=== PATIENT | female | born 1995 | race Caucasian/White ===

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

== ENCOUNTER 2017-12-02 18:08 | Emergency (ER) | payer OTHER ==
[2017-12-02 18:43] VITALS: BP 107/67
[2017-12-02] MEDS ORDERED: Ondansetron ODT TAB* 4 MG PO ONE ×2 (18:50→19:37)
--- NOTE | 2017-12-02 18:51 | UC ---
General HPI - HPI Summary HPI Summary: Pt presents with vomiting and diarrhea that began this morning around 0800. Last night felt fine. Ate pizza for dinner and had a mint shake from [employer] later that evening. Currently with mild generalized abdominal cramping. Just had her period, so she is confident that she is not . Has been trying to drink fluids, but has to vomit within a half hour after trying to consume anything. Denies fever, chills, recent illness, SOB, chest pain. - History of Current Complaint Chief Complaint: UCGI Stated Complaint: VOMITING/DIARRHEA Time Seen by Provider: 12/02/17 18:49 Hx Obtained From: Patient Onset/Duration: Sudden Onset Onset Severity: Moderate Current Severity: Moderate Pain Intensity: 6 - Allergy/Home Medications Allergies/Adverse Reactions: Allergies Allergy/AdvReac Type Severity Reaction Status Date / Time amoxicillin Allergy Unknown Verified 12/02/17 18:37 Reaction Details PMH/Surg Hx/FS Hx/Imm Hx Previously Healthy: Yes - Surgical History Surgical History: None - Family History Known Family History: Positive: Hypertension Negative: Cardiac Disease, Diabetes - Social History Occupation: Student Lives: Dormitory/Roommates Alcohol Use: Rare Substance Use Type: None Smoking Status (MU): Never Smoked Tobacco Review of Systems Constitutional: Negative Skin: Negative Respiratory: Negative Cardiovascular: Negative Gastrointestinal: Abdominal Pain, Vomiting, Nausea Genitourinary: Negative Motor: Negative Neurovascular: Negative Musculoskeletal: Negative Neurological: Negative Psychological: Negative All Other Systems Reviewed And Are Negative: Yes Physical Exam Triage Information Reviewed: Yes Appearance: Well-Appearing, No Pain Distress, Well-Nourished Vital Signs: Initial Vital Signs Temp 98.3 F 12/02/17 18:38 Pulse 110 12/02/17 18:38 Resp 18 12/02/17 18:38 BP 107/67 12/02/17 18:38 Pulse Ox 98 12/02/17 18:38 Vital Signs Reviewed: Yes Neck: Positive: Supple, Nontender, No Lymphadenopathy Respiratory: Positive: Lungs clear, Normal breath sounds, No respiratory distress, No accessory muscle use Cardiovascular: Positive: RRR, No Murmur, Pulses Normal Abdomen Description: Positive: No Organomegaly, Soft, Other: - Mild tenderness - generalized. Negative: CVA Tenderness (R), CVA Tenderness (L), Distended, Guarding Bowel Sounds: Positive: Present Neurological: Positive: Alert Psychological: Positive: Age Appropriate Behavior Skin: Negative: rashes, significant lesion(s) Course/Dx - Course Course Of Treatment: Refused UA and test today. Zofran was given in clinic and pt was observed for ~30minutes. Had one instance of vomiting shortly after giving zofran, but 30min later felt improved. Suspect viral gastroenteritis and will dc with rx for zofran. Advised to drink fluids and rest. BRAT diet and advance as tolerated. - Differential Dx - Multi-Symptom Provider Diagnoses: Viral gastroenteritis Discharge - Sign-Out/Discharge Documenting (check all that apply): Discharge - Discharge Plan Condition: Stable Disposition: HOME Prescriptions: Ondansetron TAB* [Zofran 4 MG Tab*] 4 mg PO Q8HR PRN #9 tab PRN Reason: Nausea Patient Education Materials: Gastroenteritis (DC) Forms: *School Release Referrals: Non Staff,Doctor [Primary Care Provider] - Additional Instructions: If you develop a fever, shortness of breath, chest pain, new or worsening symptoms - please call your PCP or go to the ED. 1) Rest and drink clear fluids! 2) Advance your diet as tolerated - Billing Disposition and Condition Condition: STABLE Disposition: HOME
== END 2017-12-02 19:46 | disposition home or self-care (01) ==
LOC: UCCORT 18:08
DX: A08.4 Viral intestinal infection, unspecified (principal); Z88.3 Allergy status to other anti-infective agents
CPT/HCPCS: 99212; A9270-GY; G0463

== ENCOUNTER 2019-07-14 15:31 | Emergency (ER) | payer OTHER ==
[2019-07-14 16:26] VITALS: BP 108/57
--- NOTE | 2019-07-14 16:43 | UC ---
Skin Complaint HPI - HPI Summary HPI Summary: C/O itchy rash, started on the lips 2 days ago. Has been spreading. No fevers or other signs of illness. - History of Current Complaint Chief Complaint: UCSkin Stated Complaint: HIVES Hx Obtained From: Patient Hx Last Menstrual Period: 27 DAYS AGO ?: No Onset/Duration: Sudden Onset, Lasting Days - 2, Worse Since - onset Timing: Constant Onset Severity: Mild Current Severity: Moderate Pain Intensity: 0 Location: Face Character: Pruritus, Redness, Raised Alleviating Factor(s): Antihistamines - loratidine helped a little Associated Signs & Symptoms: Positive: Rash. Negative: Nausea, Vomiting, Numbness, Diaphoresis, Weakness, Fever, Chills, Cough, Wheezing, Hoarseness, Throat Tightening - Allergy/Home Medications Allergies/Adverse Reactions: Allergies Allergy/AdvReac Type Severity Reaction Status Date / Time amoxicillin Allergy Unknown Verified 12/02/17 18:37 Reaction Details Home Medications: Home Medications Ethinyl Estradiol/Drospirenone [Kylah 28 Tablet] 1 each PO DAILY 07/14/19 [ History Confirmed 07/14/19] PMH/Surg Hx/FS Hx/Imm Hx Previously Healthy: Yes - Surgical History Surgical History: Yes Surgery Procedure, Year, and Place: breast bx - Family History Known Family History: Positive: Hypertension Negative: Cardiac Disease, Diabetes - Social History Occupation: Student Lives: Dormitory/Roommates Alcohol Use: Weekly Substance Use Type: Marijuana Substance Use Comment - Amount & Last Used: few days a week Smoking Status (MU): Never Smoked Tobacco Review of Systems All Other Systems Reviewed And Are Negative: Yes Skin: Positive: Rash ENT: Positive: Nasal Discharge - seasonal allergies. Physical Exam Triage Information Reviewed: Yes Appearance: Well-Appearing, No Pain Distress, Well-Nourished Vital Signs: Initial Vital Signs Temp 98.0 F 07/14/19 16:21 Pulse 73 07/14/19 16:21 Resp 18 07/14/19 16:21 BP 108/57 07/14/19 16:21 Pulse Ox 100 07/14/19 16:21 Vital Signs Reviewed: Yes Eyes: Positive: Conjunctiva Clear ENT: Positive: Pharynx normal, Nasal congestion - with allergic changes, TMs normal Neck exam: Normal Respiratory Exam: Normal Cardiovascular Exam: Normal Musculoskeletal Exam: Normal Neurological Exam: Normal Psychological Exam: Normal Skin: Positive: Rashes - erythematous plaques over face, especially cheeks bilaterally left > right. Course/Dx - Differential Diagnoses - Skin Complaint Differential Diagnoses: Allergic Reaction, Anaphylaxis, Contact Dermatitis, Urticaria - Diagnoses Provider Diagnosis: Dermatitis of face Discharge ED - Sign-Out/Discharge Documenting (check all that apply): Patient Departure All imaging exams completed and their final reports reviewed: No Studies - Discharge Plan Condition: Stable Disposition: HOME Prescriptions: predniSONE TAB* [Deltasone 20 MG TAB*] 60 mg PO DAILY #18 tab Patient Education Materials: Dermatitis (ED), Prednisone (By mouth) Referrals: No Primary Care Phys,NOPCP [Primary Care Provider] - Additional Instructions: You can use OTC cetirizine and diphenhydramine for itching. NEILMED SINUS RINSE: CHECK OUT AT [facility] Saline nasal wash helps with mucous, allergies and congestion. It can be used up to twice a day or only as needed. Use lukewarm tap water. It does not have to be sterilized or distilled water. Do 1/3 on each side and snort out of both nostrils. Repeat the process with 1/6 of the bottle on each side with snorting in between to finish the solution in the bottle - Billing Disposition and Condition Condition: STABLE Disposition: Home
== END 2019-07-14 16:57 | disposition home or self-care (01) ==
LOC: UCCORT 15:31
DX: L30.9 Dermatitis, unspecified (principal); R09.81 Nasal congestion; Z88.0 Allergy status to penicillin
CPT/HCPCS: 99212; G0463